=== PATIENT | female | born 1995 | race Caucasian/White ===

== ENCOUNTER 2018-11-13 20:20 | Emergency (ER) | payer OTHER ==
[2018-11-13 21:32] LABS: ADD MAN DIFF? NO
[2018-11-13] MEDS: SOD CHLORIDE 0.9% 1,000 ML IV (21:33)
[2018-11-13] MEDS: KETOROLAC 30 MG INJ IV (21:34)
[2018-11-13] MEDS: ONDANSETRON 4 MG INJ IV (21:34)
[2018-11-13 21:36] LABS: BASOPHIL # 0.1 10^3/ul (0.0-0.1); BASOPHILS % 0.5 % (0.0-2.0); EOSINOPHILS # 0.1 10^3/ul (0.0-0.5); EOSINOPHILS % 1.3 % (0.0-7.0); HEMATOCRIT 43.8 % (37.0-47.0); HEMOGLOBIN 14.2 g/dl (12.0-16.0); LYMPHOCYTES # 2.5 10^3/ul (0.8-2.9); LYMPHOCYTES % 27.4 % (15.0-51.0); MEAN CORPUSCULAR HGB CONC 32.4 g/dl (32.0-37.0); MEAN CORPUSCULAR VOLUME 86.4 fl (82.0-101.0); MONOCYTE # 0.6 10^3/ul (0.3-0.9); MONOCYTES % 6.8 % (0.0-11.0); NEUTROPHIL # 5.9 10^3/ul (1.6-7.5); NEUTROPHILS % 63.7 % (39.0-77.0); PLATELET COUNT 221 10^3/UL (140-415); RED BLOOD COUNT 5.07 10^6/ul (4.20-5.40); RED CELL DISTRIBUTION WIDTH 12.4 % (11.5-14.5)
[2018-11-13 21:36] LABS: WHITE BLOOD COUNT 9.3 10^3/ul (4.8-10.8)
[2018-11-13 21:57] LABS: ALANINE AMINOTRANSFERASE 19 IU/L (13-69); ALBUMIN 4.8 g/dl (3.3-4.9); ALBUMIN/GLOBULIN RATIO 1.37; ALKALINE PHOSPHATASE 52 IU/L (42-121); ANION GAP 9 (5-13); ASPARTATE AMINO TRANSFERASE 23 IU/L (15-46); BILIRUBIN,INDIRECT 0.5 mg/dl (0-1.1); BILIRUBIN,TOTAL 0.5 mg/dl (0.2-1.3); BLOOD UREA NITROGEN 10 mg/dl (7-20); CALCIUM 10.2 mg/dl (8.4-10.2); CARBON DIOXIDE 30 mmol/L (21-31); CHLORIDE 103 mmol/L (97-110); Estimated GFR > 60 mL/min (>60); GLUCOSE 93 mg/dl (70-220); LIPASE 133 U/L (23-300); SODIUM 142 mmol/L (135-144); TOTAL PROTEIN 8.3 g/dl (6.1-8.1)
== END 2018-11-13 23:35 | disposition home or self-care (01) ==
LOC: FTE 20:20
DX: K80.20 Calculus of gallbladder without cholecystitis without obstruction (principal); J45.909 Unspecified asthma, uncomplicated
CPT/HCPCS: 36415; 76705; 80053; 81025; 83690; 85025; 96361; 96374; 96375; 99285-25

== ENCOUNTER 2018-11-15 20:41 | Inpatient (IN) | payer OTHER ==
[2018-11-15 21:01] LABS: ADD MAN DIFF? NO
[2018-11-15 21:02] LABS: BASOPHIL # 0.1 10^3/ul (0.0-0.1); BASOPHILS % 0.7 % (0.0-2.0); EOSINOPHILS # 0.2 10^3/ul (0.0-0.5); HEMATOCRIT 41.9 % (37.0-47.0); HEMOGLOBIN 13.7 g/dl (12.0-16.0); LYMPHOCYTES # 3.1 10^3/ul (0.8-2.9); LYMPHOCYTES % 33.8 % (15.0-51.0); MEAN CORPUSCULAR HEMOGLOBIN 28.1 pg (29.0-33.0); MEAN CORPUSCULAR HGB CONC 32.7 g/dl (32.0-37.0); MEAN PLATELET VOLUME 10.3 fl (7.4-10.4); MONOCYTE # 0.6 10^3/ul (0.3-0.9); MONOCYTES % 6.7 % (0.0-11.0); NEUTROPHIL # 5.1 10^3/ul (1.6-7.5); NEUTROPHILS % 56.6 % (39.0-77.0); PLATELET COUNT 227 10^3/UL (140-415); RED BLOOD COUNT 4.87 10^6/ul (4.20-5.40)
[2018-11-15 21:02] LABS: WHITE BLOOD COUNT 9.1 10^3/ul (4.8-10.8)
[2018-11-15] MEDS: SOD CHLORIDE 0.9% 1,000 ML IV (21:03)
[2018-11-15] MEDS: HYDROmorphONE 1 MG/ML SYG IV (21:03)
[2018-11-15] MEDS: ONDANSETRON 4 MG INJ IV (21:03)
[2018-11-15 21:23] LABS: ALANINE AMINOTRANSFERASE 17 IU/L (13-69); ALBUMIN 4.5 g/dl (3.3-4.9); ALKALINE PHOSPHATASE 47 IU/L (42-121); ANION GAP 9 (5-13); ASPARTATE AMINO TRANSFERASE 21 IU/L (15-46); BILIRUBIN,INDIRECT 0.1 mg/dl (0-1.1); BILIRUBIN,TOTAL 0.1 mg/dl (0.2-1.3); BLOOD UREA NITROGEN 14 mg/dl (7-20); CARBON DIOXIDE 30 mmol/L (21-31); CHLORIDE 102 mmol/L (97-110); CREATININE 0.75 mg/dl (0.44-1.00); Estimated GFR > 60 mL/min (>60); GLUCOSE 92 mg/dl (70-220); LIPASE 283 U/L (23-300); POTASSIUM 3.8 mmol/L (3.5-5.1); SODIUM 141 mmol/L (135-144); TOTAL PROTEIN 7.7 g/dl (6.1-8.1)
[2018-11-15] MEDS ORDERED: ONDANSETRON 4 MG INJ IV (22:30)
[2018-11-15] MEDS ORDERED: NACL 0.9% 3 ML SYG IV (22:30)
[2018-11-15] MEDS ORDERED: ACETAMINOPHEN 325 MG TAB PO (22:30)
[2018-11-15] MEDS: HYDROmorphONE 0.5 MG/0.5 ML SYG IV (22:35)
[2018-11-15] MEDS: ACETAMINOPHEN 325 MG TAB PO (22:35)
[2018-11-16] MEDS: SOD CHLORIDE 0.9% 1,000 ML IV ×3 (00:05→23:10)
[2018-11-16] MEDS: HYDROmorphONE 0.5 MG/0.5 ML SYG IV ×4 (02:08→20:33)
[2018-11-16 06:25] LABS: ADD MAN DIFF? NO
[2018-11-16 06:31] LABS: BASOPHIL # 0.1 10^3/ul (0.0-0.1); BASOPHILS % 0.7 % (0.0-2.0); EOSINOPHILS # 0.2 10^3/ul (0.0-0.5); EOSINOPHILS % 2.4 % (0.0-7.0); HEMATOCRIT 39.2 % (37.0-47.0); HEMOGLOBIN 12.8 g/dl (12.0-16.0); LYMPHOCYTES # 2.8 10^3/ul (0.8-2.9); LYMPHOCYTES % 37.8 % (15.0-51.0); MEAN CORPUSCULAR HEMOGLOBIN 28.4 pg (29.0-33.0); MEAN CORPUSCULAR HGB CONC 32.7 g/dl (32.0-37.0); MEAN CORPUSCULAR VOLUME 86.9 fl (82.0-101.0); MEAN PLATELET VOLUME 10.8 fl (7.4-10.4); MONOCYTE # 0.6 10^3/ul (0.3-0.9); MONOCYTES % 7.9 % (0.0-11.0); NEUTROPHIL # 3.8 10^3/ul (1.6-7.5); NEUTROPHILS % 50.9 % (39.0-77.0); PLATELET COUNT 200 10^3/UL (140-415); RED BLOOD COUNT 4.51 10^6/ul (4.20-5.40)
[2018-11-16 06:31] LABS: WHITE BLOOD COUNT 7.4 10^3/ul (4.8-10.8)
[2018-11-16 06:45] LABS: HEMOGLOBIN A1C 5.3 % (0-5.9)
[2018-11-16 06:50] LABS: INR 0.94; PROTIME 12.7 Sec (11.9-14.9)
[2018-11-16 06:51] LABS: PARTIAL THROMBOPLASTIN TIME 28.7 Sec (23.0-35.0)
[2018-11-16 07:01] LABS: ALANINE AMINOTRANSFERASE 21 IU/L (13-69); ALBUMIN 3.7 g/dl (3.3-4.9); ALBUMIN/GLOBULIN RATIO 1.37; ALKALINE PHOSPHATASE 39 IU/L (42-121); ANION GAP 6 (5-13); BILIRUBIN,INDIRECT 0.4 mg/dl (0-1.1); BILIRUBIN,TOTAL 0.4 mg/dl (0.2-1.3); BLOOD UREA NITROGEN 11 mg/dl (7-20); CARBON DIOXIDE 30 mmol/L (21-31); CHLORIDE 106 mmol/L (97-110); CHOLESTEROL 118 mg/dl (100-200); CREATININE 0.78 mg/dl (0.44-1.00); Estimated GFR > 60 mL/min (>60); GLUCOSE 90 mg/dl (70-220); HDL CHOLESTEROL 29 mg/dl (33-83); LDL CHOLESTEROL,CALCULATED 69 mg/dl; MAGNESIUM 1.9 mg/dl (1.7-2.5); POTASSIUM 4.4 mmol/L (3.5-5.1); SODIUM 142 mmol/L (135-144); TOTAL PROTEIN 6.4 g/dl (6.1-8.1); TRIGLYCERIDES 100 mg/dl (0-149)
[2018-11-16 07:03] LABS: ASPARTATE AMINO TRANSFERASE 18 IU/L (15-46); CALCIUM 9.3 mg/dl (8.4-10.2)
[2018-11-17] MEDS: HYDROmorphONE 0.5 MG/0.5 ML SYG IV ×4 (00:59→20:20)
[2018-11-17] MEDS: SOD CHLORIDE 0.9% 1,000 ML IV ×3 (00:59→20:00)
[2018-11-17 10:37] LABS: ADD UMIC YES; UR ASCORBIC ACID NEGATIVE (NEGATIVE); UR BACTERIA FEW /HPF (NONE SEEN); UR BILIRUBIN (Dip) NEGATIVE (NEGATIVE); UR BLOOD (Dip) NEGATIVE (NEGATIVE); UR CLARITY SLIGHTLY CLOUDY (CLEAR); UR COLOR YELLOW (YELLOW); UR GLUCOSE (Dip) NEGATIVE (NEGATIVE); UR KETONES (Dip) NEGATIVE (NEGATIVE); UR LEUKOCYTE ESTERASE (Dip) 2+ Leu/ul (NEGATIVE); UR NITRITE (Dip) NEGATIVE (NEGATIVE); UR RBC 1 /HPF (0-5); UR SQUAMOUS EPITHELIAL CELL FEW /HPF (FEW); UR TOTAL PROTEIN (Dip) NEGATIVE (NEGATIVE); UR UROBILINOGEN (Dip) NEGATIVE (NEGATIVE); UR WBC 15 /HPF (0-5)
[2018-11-17] MEDS ORDERED: MIDAZOLAM 1 MG/ML 2 ML INJ (15:23)
[2018-11-17] MEDS: BUPIVACAINE 0.5%/EPI (SDV) 30 ML INJ (15:50)
[2018-11-17] MEDS ORDERED: ROPIVACAINE 0.5 % 30 ML VIAL (16:14)
[2018-11-17] MEDS ORDERED: GLYCOPYRROLATE 0.4 MG INJ (16:25)
[2018-11-17] MEDS ORDERED: PROPOFOL 20 ML (16:25)
[2018-11-17] MEDS ORDERED: LIDOCAINE 2% (SDV) 5 ML INJ (16:25)
[2018-11-17] MEDS ORDERED: ROCURONIUM 50 MG INJ (16:25)
[2018-11-17] MEDS ORDERED: NEOSTIGMINE 3 MG/3 ML SYRINGE (16:26)
[2018-11-17] MEDS ORDERED: ONDANSETRON 4 MG INJ (16:26)
[2018-11-17] MEDS ORDERED: FENTAnyl 50 MCG/ML VIAL IV (16:30)
[2018-11-17] MEDS ORDERED: HYDROmorphONE 1 MG/5 ML IV SYRINGE IV ×2 (16:30→16:48)
[2018-11-17] MEDS ORDERED: KETOROLAC 30 MG INJ IV (16:30)
[2018-11-17] MEDS ORDERED: METOCLOPRAMIDE 10 MG INJ IV (16:30)
[2018-11-17] MEDS ORDERED: ONDANSETRON 4 MG INJ IV ×2 (16:30)
[2018-11-17] MEDS ORDERED: morphine 2 MG INJ IV (16:30)
[2018-11-17] MEDS ORDERED: DIPHENHYDRAMINE 50 MG INJ IV (16:30)
[2018-11-17] MEDS: HYDROmorphONE 1 MG/5 ML IV SYRINGE IV (17:16)
[2018-11-17] MEDS: MEPERIDINE 25 MG INJ IV (17:34)
[2018-11-18] MEDS: OXYCODONE/ACETAMINOPHEN (5/325) TAB PO ×2 (00:43→04:43)
[2018-11-18 05:41] LABS: ADD MAN DIFF? NO
[2018-11-18 05:48] LABS: BASOPHILS % 0.4 % (0.0-2.0); EOSINOPHILS # 0.1 10^3/ul (0.0-0.5); EOSINOPHILS % 1.1 % (0.0-7.0); HEMATOCRIT 35.8 % (37.0-47.0); HEMOGLOBIN 11.8 g/dl (12.0-16.0); LYMPHOCYTES # 1.8 10^3/ul (0.8-2.9); LYMPHOCYTES % 19.9 % (15.0-51.0); MEAN CORPUSCULAR VOLUME 84.8 fl (82.0-101.0); MEAN PLATELET VOLUME 10.8 fl (7.4-10.4); MONOCYTE # 0.6 10^3/ul (0.3-0.9); MONOCYTES % 6.4 % (0.0-11.0); NEUTROPHIL # 6.6 10^3/ul (1.6-7.5); PLATELET COUNT 189 10^3/UL (140-415); RED BLOOD COUNT 4.22 10^6/ul (4.20-5.40); RED CELL DISTRIBUTION WIDTH 12.1 % (11.5-14.5)
[2018-11-18 05:48] LABS: WHITE BLOOD COUNT 9.1 10^3/ul (4.8-10.8)
[2018-11-18 06:08] LABS: ALANINE AMINOTRANSFERASE 23 IU/L (13-69); ALBUMIN 3.5 g/dl (3.3-4.9); ALBUMIN/GLOBULIN RATIO 1.29; ALKALINE PHOSPHATASE 35 IU/L (42-121); ANION GAP 6 (5-13); ASPARTATE AMINO TRANSFERASE 24 IU/L (15-46); BILIRUBIN,INDIRECT 0.4 mg/dl (0-1.1); BILIRUBIN,TOTAL 0.4 mg/dl (0.2-1.3); BLOOD UREA NITROGEN 7 mg/dl (7-20); CALCIUM 8.8 mg/dl (8.4-10.2); CARBON DIOXIDE 27 mmol/L (21-31); CHLORIDE 105 mmol/L (97-110); CREATININE 0.69 mg/dl (0.44-1.00); Estimated GFR > 60 mL/min (>60); GLUCOSE 136 mg/dl (70-220); POTASSIUM 3.7 mmol/L (3.5-5.1); SODIUM 138 mmol/L (135-144); TOTAL PROTEIN 6.2 g/dl (6.1-8.1)
[2018-11-18] MEDS: SOD CHLORIDE 0.9% 1,000 ML IV (07:38)
[2018-11-18] MEDS: HYDROmorphONE 0.5 MG/0.5 ML SYG IV (14:57)
[2018-11-18] MEDS: ONDANSETRON 4 MG INJ IV (14:57)
[2018-11-18] MEDS ORDERED: CEFAZOLIN 1 GM INJ (17:21)
[2018-11-18] MEDS ORDERED: FENTAnyl 50 MCG/ML VIAL (17:21)
[2018-11-18] MEDS ORDERED: PROPOFOL 20 ML (17:21)
[2018-11-18] MEDS ORDERED: MIDAZOLAM 1 MG/ML 2 ML INJ (17:21)
[2018-11-18] MEDS ORDERED: ROCURONIUM 50 MG INJ (17:21)
[2018-11-18] MEDS ORDERED: LABETALOL HCL 20MG INJ IV (17:30)
[2018-11-18] MEDS ORDERED: HYDROmorphONE 1 MG/5 ML IV SYRINGE IV ×2 (17:30)
[2018-11-18] MEDS ORDERED: EPHEDrine 25 MG/5 ML SYG IV (17:30)
[2018-11-18] MEDS ORDERED: METOCLOPRAMIDE 10 MG INJ IV (17:30)
[2018-11-18] MEDS ORDERED: OXYCODONE/ACETAMINOPHEN (5/325) TAB PO (17:30)
[2018-11-18] MEDS ORDERED: FENTAnyl 50 MCG/ML VIAL IV ×2 (17:30)
[2018-11-18] MEDS ORDERED: ONDANSETRON 4 MG INJ IV (17:30)
[2018-11-18] MEDS ORDERED: IOHEXOL 300MG/ML 30 ML BTL (17:38)
[2018-11-18] MEDS ORDERED: LABETALOL HCL 20MG INJ (18:46)
[2018-11-18] MEDS ORDERED: METOCLOPRAMIDE 10 MG INJ (18:59)
[2018-11-18] MEDS ORDERED: ONDANSETRON 4 MG INJ (18:59)
[2018-11-18] MEDS ORDERED: DEXAMETHASONE 4 MG/ML 5 ML INJ (19:00)
[2018-11-18] MEDS ORDERED: KETOROLAC 30 MG INJ (19:00)
[2018-11-18] MEDS ORDERED: SUGAMMADEX SODIUM 200 MG/2 ML VIAL IV (19:00)
[2018-11-19] MEDS: OXYCODONE/ACETAMINOPHEN (5/325) TAB PO (01:00)
[2018-11-19 05:39] LABS: ADD MAN DIFF? NO
[2018-11-19 05:42] LABS: BASOPHILS % 0.1 % (0.0-2.0); HEMOGLOBIN 12.8 g/dl (12.0-16.0); LYMPHOCYTES # 0.8 10^3/ul (0.8-2.9); LYMPHOCYTES % 9.5 % (15.0-51.0); MEAN CORPUSCULAR HEMOGLOBIN 28.4 pg (29.0-33.0); MEAN CORPUSCULAR HGB CONC 33.7 g/dl (32.0-37.0); MEAN CORPUSCULAR VOLUME 84.4 fl (82.0-101.0); MONOCYTE # 0.4 10^3/ul (0.3-0.9); MONOCYTES % 4.8 % (0.0-11.0); NEUTROPHILS % 85.4 % (39.0-77.0); PLATELET COUNT 213 10^3/UL (140-415)
[2018-11-19 05:42] LABS: WHITE BLOOD COUNT 8.2 10^3/ul (4.8-10.8)
[2018-11-19 06:15] LABS: ANION GAP 8 (5-13); BLOOD UREA NITROGEN 4 mg/dl (7-20); CALCIUM 9.8 mg/dl (8.4-10.2); CARBON DIOXIDE 26 mmol/L (21-31); CHLORIDE 104 mmol/L (97-110); CREATININE 0.57 mg/dl (0.44-1.00); Estimated GFR > 60 mL/min (>60); GLUCOSE 134 mg/dl (70-220); POTASSIUM 4.1 mmol/L (3.5-5.1); SODIUM 138 mmol/L (135-144)
[2018-11-19 09:34] LABS: ALANINE AMINOTRANSFERASE 264 IU/L (13-69); ALBUMIN 4.1 g/dl (3.3-4.9); ALKALINE PHOSPHATASE 91 IU/L (42-121); ASPARTATE AMINO TRANSFERASE 250 IU/L (15-46); BILIRUBIN,INDIRECT 0.4 mg/dl (0-1.1); BILIRUBIN,TOTAL 0.4 mg/dl (0.2-1.3); TOTAL PROTEIN 7.2 g/dl (6.1-8.1)
[2018-11-19] MEDS: MAGNESIUM HYDROXIDE 30ML CUP PO (16:56)
== END 2018-11-19 18:25 | disposition home or self-care (01) | DRG 419 ==
LOC: E/R 20:41 → 2NE 22:09
PROC: 0FT44ZZ Resection of Gallbladder, Percutaneous Endoscopic Approach (ICD-10-PCS; principal; 2018-11-17 15:00)
PROC: 0FD98ZX Extraction of Common Bile Duct, Via Natural or Artificial Opening Endoscopic, Diagnostic (ICD-10-PCS; 2018-11-17 15:19)
PROC: 0F778ZZ Dilation of Common Hepatic Duct, Via Natural or Artificial Opening Endoscopic (ICD-10-PCS; 2018-11-17 15:19)
DX: K80.64 Calculus of gallbladder and bile duct with chronic cholecystitis without obstruction (principal); E66.9 Obesity, unspecified; F17.200 Nicotine dependence, unspecified, uncomplicated; K80.50 Calculus of bile duct without cholangitis or cholecystitis without obstruction; J45.909 Unspecified asthma, uncomplicated; Z68.31 Body mass index [BMI] 31.0-31.9, adult; Z71.3 Dietary counseling and surveillance
CPT/HCPCS: 36415; 74181; 74330; 76705; 80048; 80053; 80061; 80076; 81001; 81025; 83036; 83690; 83735; 84443; 84703; 85025; 85610; 85730; 88104; 88304; 88305; 96374; 96375; 99285-25